=== PATIENT | female | born 1940 ===

== ENCOUNTER 2016-10-08 06:19 | Day surgery (SDC) | payer MEDICARE, BC ==
[~2016-10-08] VITALS: Ht 165.1 cm; Wt 66.7 kg
[2016-10-08] VITALS (10 sets, daily range): BP systolic 111–143; BP diastolic 67–83
[~2016-10-08 06:19] MED LIST: Akten 3.5% 1ml Btl ONE; Diclofenac Sod 0.1% Op Soln ONE; Gatifloxacin Opth Solution 0.5% ONE; Phenylephrine 2.5% Op Soln ONE; Tobradex Opth Susp 2.5ml ONE; Tropicamide 1% Opth Soln ONE
[2016-10-08] MEDS ORDERED: Midazolam 2mg/2ml Inj ONE (06:20)
[2016-10-08] MEDS ORDERED: fentaNYL 100 mcg/2 mL IV ONE ×2 (06:20→09:15)
[2016-10-08] MEDS ORDERED: LR 1000ml ONE (06:20)
[2016-10-08] MEDS ORDERED: Lidocaine 1% MPF 10mg/ml 5ml ONE (06:56)
[2016-10-08] MEDS ORDERED: BSS 500ml btl ONE (06:56)
[2016-10-08] MEDS ORDERED: Dexamethasone 4mg/ml vial ONE (06:56)
[2016-10-08] MEDS ORDERED: Povidone-Iodine 5% opth solution ONE (06:57)
[2016-10-08] MEDS ORDERED: BSS 15ml BTL ONE (06:58)
[2016-10-08] MEDS ORDERED: Sodium Hyaluronate 14 mg/ml 0.85ml ONE (06:58)
[2016-10-08] MEDS ORDERED: Carbachol 0.01% Op Soln 1.5ml vial ONE (06:58)
[2016-10-08] MEDS ORDERED: EPINEPHrine 1mg/1ml Amp ONE (06:58)
[2016-10-08] MEDS: Tropicamide 1% Opth Soln LEFT EYE SCH ×3 (07:16→07:38)
[2016-10-08] MEDS: Akten 3.5% 1ml Btl LEFT EYE SCH ×3 (07:16→07:38)
[2016-10-08] MEDS: Phenylephrine 2.5% Op Soln LEFT EYE SCH ×3 (07:16→07:38)
[2016-10-08] MEDS: Tobradex Opth Susp 2.5ml LEFT EYE SCH ×3 (07:16→07:38)
[2016-10-08] MEDS: Diclofenac Sod 0.1% Op Soln LEFT EYE SCH ×3 (07:17→07:38)
[2016-10-08] MEDS: Gatifloxacin Opth Solution 0.5% LEFT EYE SCH ×3 (07:17→07:38)
--- NOTE | 2016-10-08 07:38 | Pre-Procedure Note/Attestation ---
Pre-Procedure Note/Attestation Complete Prior to Procedure Planned Procedure: left Procedure Narrative: cataract extraction with implant left eye Indications for Procedure Pre-Operative Diagnosis: cataract left eye Attestation I attest that I discussed the nature of the procedure; its benefits; risks and complications; and alternatives (and the risks and benefits of such alternatives ), prior to the procedure, with the patient (or the patient's legal claim service representative). I attest that, if there was a reasonable possibility of needing a blood transfusion, the patient (or the patient's legal claim service representative) was given the [facility] standardized written summary, pursuant to the Earnest Davi Blood Safety Act ([place] Health and Safety Code # 1645, as amended). I attest that I re-evaluated the patient just prior to the surgery and that there has been no change in the patient's H&P, except as documented below: SHANE MACARIO October 08, 2016 07:38
[2016-10-08] MEDS ORDERED: MOBIC15 MG ORAL (07:55)
[2016-10-08] MEDS ORDERED: RESTASIS1 EACH BOTH EYES (07:55)
[2016-10-08] MEDS ORDERED: LUMIGAN2.5 ML BOTH EYES (07:55)
[2016-10-08] MEDS ORDERED: CLONAZEPAM2 MG PO (07:55)
--- NOTE | 2016-10-08 08:43 | Anethesia Preoperative Eval ---
Anesthesia Pre-op PMH/ROS General Date of Evaluation: October 08, 2016 Time of Evaluation: 08:42 Anesthesiologist: jia ASA Score: ASA 1 Mallampati Score Class I : Soft palate, uvula, fauces, pillars visible Class II: Soft palate, uvula, fauces visible Class III: Soft palate, base of uvula visible Class IV: Only hard plate visible Mallampati Classification: Class II Surgeon: tawanna Diagnosis: cataract Surgical Procedure: cataract extraction left eye Anesthesia History: none Family History: no anesthesia problems Allergies: Coded Allergies: LATEX, NATURAL RUBBER (Verified Allergy, Severe, SWOLLEN EYE, 10/08/16) ACETAMINOPHEN (Verified Allergy, Intermediate, RASH, 10/08/16) OMEPRAZOLE (Verified Allergy, Intermediate, RASH , 10/08/16) Past Medical History Cardiovascular: Denies: CAD, HTN, [place], arrhythmia, other, valve dz Pulmonary: Denies: COPD, ROYAL, asthma, other Gastrointestinal/Genitourinary: Denies: CRI, ESRD, GERD, other Neurologic/Psychiatric: Denies: CVA, TIA, dementia, depression/anxiety, other Endocrine: Denies: DM, hypothyroidism, other, steroids HEENT: Reports: cataract (L) Hematology/Immune: Denies: DVT, anemia, bleeding disorder, other Musculoskeletal/Integumentary: Denies: DDD, DJD, OA, RA, edema, other PSxH Narrative: cataract extraction right eye Anesthesia Pre-op Phys. Exam Physician Exam Last Vital Signs Date Time Temp Pulse Resp B/P Pulse Ox O2 Delivery O2 Flow Rate FiO2 10/08/16 07:26 97.3 72 18 111/78 98 Room Air Constitutional: NAD Neurologic: CN 2-12 intact Cardiovascular: RRR Respiratory: CTA Gastrointestinal: S/NT/ND Airway Exam Mallampati Classification 2 Mallampati Score: Class II ROM: full Dentures: no lower, no upper Anesthesia Pre-op A/P Studies Pre-op Studies: EKG - sr Risk Assessment & Plan Plan: mac Status Change Before Surgery: No Pre-Antibiotics Drug: none MARYELLEN MICHAEL CRNA October 08, 2016 08:43
--- NOTE | 2016-10-08 09:01 | Brief Operative Note ---
Immediate Post Operative Note Operative Note Pre-op Diagnosis: cataract left eye Procedure: phacoemulsification of cataract with implant left eye Post-op Diagnosis: same as pre-op Surgeon: shane stacy md Renderer: wes bay md Anesthesiologist: lina ro crna Anesthesia: MAC Specimen: none Complications: none Condition: stable Estimated Blood Loss: none Drains: none Implant(s) used?: Yes SHANE STACY October 08, 2016 09:01
--- NOTE | 2016-10-08 09:19 | Immediate Post-Op Evaluation ---
Immediate Post-Op Evalulation Immediate Post-Op Evalulation Procedure: cataract extraction left eye Date of Evaluation: October 08, 2016 Time of Evaluation: 08:58 IV Fluids: 3000 Blood Pressure Systolic: 146 Blood Pressure Diastolic: 79 Pulse Rate: 70 Respiratory Rate: 14 O2 Sat by Pulse Oximetry: 100 Nausea: No Vomiting: No Complications none Patient Status: awake, reacts, patent Hydration Status: adequate Drug: none RONALDRIMARYELLEN KELLER CRNA October 08, 2016 09:19
--- NOTE | 2016-10-08 10:00 | 48 Hour Post Anesthesia Eval ---
Post Anesthesia Evaluation Procedure: cataract extraction left eye Date of Evaluation: October 08, 2016 Time of Evaluation: 10:00 Blood Pressure Systolic: 130 0: 60 Pulse Rate: 74 Respiratory Rate: 15 O2 Sat by Pulse Oximetry: 100 Airway: patent Nausea: No Vomiting: No Hydration Status: adequate Mental Status/LOC: patient returned to baseline Post-Anesthesia Complications: none Follow-up care needed: N/A MARYELLEN MICHAEL CRNA October 08, 2016 10:00
--- NOTE | 2016-10-08 17:03 | Operative Note - Dictated ---
DATE OF OPERATION: 10/08/2016 PREOPERATIVE DIAGNOSIS: Cataract, left eye. POSTOPERATIVE DIAGNOSIS: Cataract, left eye. PROCEDURE: Phacoemulsification cataract left eye with placement of posterior chamber intraocular lens. SURGEON: Jc Campos M.D. CANCER RESEARCHER: Dr. Oc Benavides M.D. ANESTHESIA: MAC/topical. ANESTHESIOLOGIST: Christina Smith C.R.N.A. INDICATION FOR PROCEDURE: Poor vision, left eye. DESCRIPTION OF FINDINGS: Nuclear sclerotic and cortical cataract, left eye. DESCRIPTION OF PROCEDURE: The patient received a topical anesthetic block consisting of 3.5% Akten eye drops. The eye was then prepped and draped in usual manner. A lid speculum was placed and operating Zeiss microscope was positioned. The temporal corneal groove was made with the obie blade. A SuperSharp blade made stab incision at the 6 o'clock position. A 0.1 mL of 1% nonpreserved intracameral lidocaine was injected. Healon was instilled into the anterior chamber and a 2.5 plus 2.8 mm trapezoidal obie blade was used to complete the temporal corneal wound. A cystotome was used to create an anterior capsular flap. Utrata forceps were used to complete the capsulorrhexis. BSS on a cannula was used to hydrodissect the nucleus. The lens nucleus was phacoemulsified in a phaco-fracture technique. Remaining cortical material removed with the I/A and the posterior capsule polished the I/A on Cap vac. Healon was reinstilled in the capsular bag and anterior chamber and an Denis foldable one-piece posterior chamber intraocular lens model [id number], the power 16.5 diopter, serial number #[id number] was placed in the injector. The lens was put in the capsular bag. The I/A tip was used to remove the Healon and position the lens. The wound edge was hydrated with BSS and a blunt-tipped cannula. The wound was checked and found to be watertight. The lid speculum was removed and a drop of Tobrex and Zymaxid was placed. A clear plastic shield was taped over the eye. The patient tolerated the procedure well and left the operating room in good condition. Jc Campos M.D. ([facility]) DR: VALORIE JOB#: [id number] CC: Dr. Oc LUNA
== END 2016-10-08 11:25 | disposition home or self-care (01) ==
LOC: SUR 06:19
DX: H25.12 Age-related nuclear cataract, left eye (principal); H25.012 Cortical age-related cataract, left eye; H40.9 Unspecified glaucoma; E78.00 Pure hypercholesterolemia, unspecified; K21.9 Gastro-esophageal reflux disease without esophagitis; I73.9 Peripheral vascular disease, unspecified; M54.9 Dorsalgia, unspecified; G47.00 Insomnia, unspecified; B35.1 Tinea unguium; Z88.8 Allergy status to other drugs, medicaments and biological substances; Z88.6 Allergy status to analgesic agent; Z91.040 Latex allergy status
CPT/HCPCS: 94003; 94150; J2250